=== PATIENT | male | born 1975 | race Native Hawaiian/Other Pacific Islander ===

== ENCOUNTER 2018-10-04 19:17 | Emergency (ER) | payer OTHER ==
[~2018-10-04] VITALS: Ht 175.3 cm; Wt 59.0 kg
[2018-10-04 19:17] VITALS: TEMP 98.5
[~2018-10-04 19:17] MED LIST: ACCU-CHEK; ALLO100T22 PO; AMOX500C85 PO; ATIVAN0.5 MG PO; AZAT50TA2 PO; CEFTIN500 MG PO; CLARITIN10 MG PO; COLCRYS PO; DICL1GEL2 TOP; FLUT0.05; HUMARA INJ; HUMULIN R1 ML IJ; HYDR50CA21 PO; HYDROXYZ HCL50 MG PO; LEXAPRO10 MG PO; LORTAB 10/5001 EACH PO; OMEP40CA PO; PENTASA500 MG PO; VIT B12/FA OR
[2018-10-04 19:36] LABS: PLATELET COUNT 518 K/uL (142-355)
[2018-10-04 19:43] LABS: POTASSIUM 3.7 mmol/L (3.6-5.2)
[2018-10-04 20:52] VITALS: BP 137/82
== END 2018-10-04 20:58 | disposition home or self-care (01) ==
LOC: ED 19:17
PROVIDERS: Emergency Medicine
DX: R07.89 Other chest pain (principal); R00.0 Tachycardia, unspecified
CPT/HCPCS: 36415; 80053; 82550; 84484; 85027; 93005; 96372; 99283; J1885

== ENCOUNTER 2019-05-11 06:24 | Emergency (ER) | payer OTHER ==
[~2019-05-11] VITALS: Ht 175.3 cm; Wt 58.1 kg
[2019-05-11 06:30] VITALS: BP 120/89; TEMP 97.3
== END 2019-05-11 09:20 | disposition home or self-care (01) ==
LOC: ED 06:24
DX: M54.2 Cervicalgia (principal); M47.892 Other spondylosis, cervical region
CPT/HCPCS: 96372; 99283; J1885

== ENCOUNTER 2020-02-24 01:16 | Inpatient (IN) | payer OTHER ==
[~2020-02-24] VITALS: Ht 175.3 cm; Wt 57.4 kg
[2020-02-24] VITALS (8 sets, daily range): BP systolic 11–114; BP diastolic 62–80; TEMP 97.5–98.9; Ht 175.3 cm; Wt 57.4 kg
[2020-02-24 02:07] LABS: PLATELET COUNT 458 K/uL (142-355)
[2020-02-24 02:11] LABS: POTASSIUM 4.1 mmol/L (3.6-5.2)
[2020-02-24 02:47] LABS: PARTIAL THROMBOPLASTIN TIME 26.2 SECONDS (24.5-33.6)
[2020-02-24 10:08] LABS: PLATELET COUNT 381 K/uL (142-355)
[2020-02-24] MEDS ORDERED: CLOP75TA2 PO (18:02)
[2020-02-24] MEDS ORDERED: ASA LOW DOSE81 MG PO (18:02)
[2020-02-25 04:00] VITALS: BP 110/78; TEMP 98.7
[2020-02-25 05:52] LABS: PLATELET COUNT 385 K/uL (142-355)
[2020-02-25 06:11] LABS: POTASSIUM 4.2 mmol/L (3.6-5.2)
[2020-02-25 08:00] VITALS: BP 91/62; TEMP 97.9
[2020-02-25 12:00] VITALS: BP 103/66; TEMP 97.9
[2020-02-25] MEDS ORDERED: CIPRO500 MG PO (13:42)
[2020-02-25] MEDS ORDERED: METR250T19 PO (13:44)
[2020-02-25] MEDS ORDERED: PRED20TA27 PO (13:45)
== END 2020-02-25 14:30 | disposition home or self-care (01) | DRG 387 ==
LOC: ED 01:16 → MED/SURG 05:04
PROVIDERS: Internal Medicine; ADMIT Hospitalist
DX: K50.918 Crohn's disease, unspecified, with other complication (principal); F41.8 Other specified anxiety disorders
CPT/HCPCS: 36415; 80053; 82150; 83605; 83690; 85027; 85610; 85730; 94760; 96360; 96361; 96365; 96375; 99284; J0744; J1170; J1650; J1885; J2060; J2405; J2930; J3490; Q9963

== ENCOUNTER 2022-09-13 16:03 | Observation (INO) | payer OTHER ==
[~2022-09-13] VITALS: Ht 175.3 cm; Wt 62.7 kg
[~2022-09-13 16:03] MED LIST changes: +ASA LOW DOSE81 MG PO; +CIPRO500 MG PO; +CLOP75TA2 PO; +METR250T19 PO; +PRED20TA27 PO
[2022-09-13 16:14] VITALS: BP 99/56; TEMP 98
[2022-09-13 18:39] LABS: PLATELET COUNT 637 K/uL (142-355)
[2022-09-13 18:54] LABS: POTASSIUM 4.6 mmol/L (3.6-5.2)
[2022-09-13 21:30] VITALS: BP 84/50
[2022-09-13 22:32] VITALS: BP 87/40; TEMP 97.5; Ht 175.3 cm; Wt 62.7 kg
[2022-09-14 00:01] VITALS: BP 102/62; TEMP 97.6
[2022-09-14 04:15] VITALS: BP 111/63; TEMP 97.8
[2022-09-14 08:00] VITALS: BP 108/64; TEMP 97.8
[2022-09-14] MEDS ORDERED: LORA0.5T17 PO (11:34)
[2022-09-14] MEDS ORDERED: NEURONTIN800 MG PO (11:34)
[2022-09-14] MEDS ORDERED: PANTOPRAZOLE 40MG TA PO (11:35)
[2022-09-14] MEDS ORDERED: METO50TA27 PO (11:35)
[2022-09-14] MEDS ORDERED: TRAMADOL HYDROC50 MG PO (11:36)
[2022-09-14] MEDS ORDERED: COLCHICINE0.6 M1 PO (11:37)
[2022-09-14] MEDS ORDERED: ALLO100T22 PO (11:37)
[2022-09-14] MEDS ORDERED: GLIPIZIDE PO (11:42)
== END 2022-09-14 13:30 | disposition home or self-care (01) ==
LOC: ED 16:03 → MED/SURG 20:24
PROVIDERS: ADMIT Emergency Medicine; ATTEND Internal Medicine
DX: M06.8A Other specified rheumatoid arthritis, other specified site (principal); I10 Essential (primary) hypertension; K21.9 Gastro-esophageal reflux disease without esophagitis; M10.9 Gout, unspecified; G89.4 Chronic pain syndrome; I25.10 Atherosclerotic heart disease of native coronary artery without angina pectoris; F41.8 Other specified anxiety disorders; K50.90 Crohn's disease, unspecified, without complications; Z72.0 Tobacco use; E11.65 Type 2 diabetes mellitus with hyperglycemia
CPT/HCPCS: 36415; 80053; 83605; 84550; 85027; 87502; 87635; 96374; 96375; 99220; 99284; G0378; J1170; J2405; J2930; U0003